=== PATIENT | female | born 1965 | race Caucasian/White ===

== ENCOUNTER → 2016-05-11 | Outpatient (CLI) | payer OTHER ==
--- NOTE | 2016-05-11 12:05 | MA ---
Screening Digital Mammogram With iCAD Analysis Clinical Indications: Routine screening. Technique: Standard cephalocaudal projections are obtained. Digital breast tomosynthesis was performe d in the MLO projection with reconstruction at 1.0 mm slice thickness and composite MLO views reconst ructed. This examination is processed by the iCAD computer aided detection system. Comparison: June 2013, May 2012, May 2011, March 2008, May 2006. Breast density: Type D: Extremely dense. Findings: CAD was reviewed. On the tomosynthesis sequence of the left breast there is a 12 mm rounded opacity in the mid slightly medial left breast. No suspicious microcalcifications are identified. Th e right breast is stable in appearance. Impression: Nodular asymmetry left breast requires further evaluation, BI-RADS 0.. Recommendation: Targeted left breast ultrasound with additional mammographic imaging if indicated at the time of sonographic evaluation. [facility] will send a result letter to the patient. Negative mammography should not preclude additional workup of a clinically suspicious finding. The patient's information is entered into a reminder system with a target due date for her next mammo gram.
== END ==
LOC: FIMAGING 08:52
PROVIDERS: ATTEND Nurse Practitioner Women's Health
DX: Z12.31 Encounter for screening mammogram for malignant neoplasm of breast (principal)
CPT/HCPCS: G0202

== ENCOUNTER → 2016-05-25 | Outpatient (CLI) | payer OTHER | LOC: FIMAGING 09:39 | DX: N60.02 Solitary cyst of left breast (principal) ==

== ENCOUNTER 2016-08-08 07:22 | Day surgery (SDC) | payer OTHER ==
--- NOTE | 2016-07-27 16:14 | GHP ---
[f rep st] PREOP HISTORY AND PHYSICAL DATE OF ADMISSION: 08/08/2016 ADMITTING DIAGNOSES: 1. Left adnexal mass. 2. Dyspareunia. HISTORY OF PRESENT ILLNESS: The patient is a 50-year-old G0, who presents to my office for a surgical consult. The patient presents with complaints of about 6 months' duration of dyspareunia, especially with deep penetration. Patient also has a history of irregular cycles, every 22-50 days. She usually bleeds 2-3 days. They are light, and she has moderate cramps. Does have the Paragard IUD in place. Patient did undergo an ultrasound secondary to irregular cycles, as well as the dyspareunia, and there was noted to be multiple fibroids, at least 3 that were measurable. There is a subserosal fibroid in the right anterior wall, another subserosal fibroid posteriorly, and an intramural fibroid, all measuring between 1 and 3 cm. Endometrial thickness is 0.51 cm. There was noted to be a solid mass in the left adnexa measuring 4 x 3 x 3 cm, with a small fluid component within the mass which demonstrated flow. There was question whether this was a pedunculated fibroid versus a left ovarian mass. There is no free fluid noted. Patient did have a CA-125 drawn which was normal at 7.8, and was told to have repeat followup ultrasound in 4-6 weeks. Patient presented the end of June for a followup ultrasound. Again, the IUD was appropriately placed. Anterior uterus was 6 x 4 x 5 cm with multiple, unchanged fibroids. The left adnexal mass was also unchanged, still measuring 4 x 3 x 4 cm. Left ovary is not visible. The right ovary is normal, and no free fluid. The patient was given options of pursuing an MRI for better evaluation of this possible left ovarian mass, versus surgical consult. Patient does desire surgery for evaluation and possible removal of this mass. The patient denies any urinary or bowel complaints, and has no other complaints at this time. PAST OB HISTORY: Patient is nulliparous. BRONZE CHASER HISTORY: Age of menarche 14. Cycles are every 22-50 days for 2-3 days. Light flow. Moderate cramping. Patient does have a history of abnormal Pap smears. A colposcopy and cryosurgery was done in 1992. Most recent Pap smear in 2017 negative. Patient does have a history of chlamydia, with treatment in , and denies any other exposure to sexually transmitted diseases. PAST MEDICAL HISTORY: Remarkable for depression, anxiety that are well controlled. PAST SURGICAL HISTORY: Cryosurgery in 1992. Eye muscle surgery in 1985. ALLERGIES: Cortisone. FAMILY HISTORY: Mother and maternal grandmother with thyroid disease. Father with a stroke, and paternal grandfather with emphysema. SOCIAL HISTORY: Patient is in a relationship for 8 years now. She works as a content writer. She denies any tobacco use. She does drink 1-2 drinks per week, and admits to marijuana use once every 3 months. PHYSICAL EXAMINATION: VITAL SIGNS: Stable. Patient is afebrile. GENERAL APPEARANCE: Well-nourished, well-developed female. Alert and oriented x3, in no apparent distress. CARDIOVASCULAR: Regular rate and rhythm. LUNGS: Clear to auscultation. ABDOMEN: Soft, nondistended, nontender. Active bowel sounds. PELVIC: Bimanual exam: A normal-sized uterus, nontender, mobile, and normal adnexa without tenderness or masses. LABS: H and H are pending. CA 125 is 7.8 ASSESSMENT: The patient is a 50-year-old, 0, who presents with left adnexal mass unresolved, and dyspareunia for 6 months' duration. PLAN: 1. Surgical options were reviewed with the patient. Will proceed with a diagnostic laparoscopy with possible removal of mass and/or ovary. Discussed limitations, n.p.o. status, preop and postop recovery. 2. Risks, benefits, and alternatives reviewed with the patient including, but not limited to, bleeding, infection, and risk of damage to surrounding organs, including the bowel, bladder, and ureters. Patient does understand all risks at this time, and wants to proceed with surgery. 3. Antibiotics construction project engineer to OR. 4. SCDs for DVT prophylaxis. /[id number]/MODL MTDD
[~2016-08-08 07:22] MED LIST: BUPIVACAINE 0.25% 30 ML SDV ONE; SILVER NITRATE APPLICATOR 1 APPL TP ONE; ceFAZolin 2 GM/DEXTROSE 100 ML IV ONE
[2016-08-08] MEDS ORDERED: LIDOCAINE 1% 2 ML INJ ONE (07:45)
[2016-08-08] MEDS ORDERED: LR 1,000 ML IV ONE (08:00)
[2016-08-08] MEDS ORDERED: LIDOCAINE 1% 5 ML SDV ID PRN (08:00)
[2016-08-08] MEDS ORDERED: METOCLOPRAMIDE 10 MG/2 ML VIAL ONE (08:05)
[2016-08-08] MEDS ORDERED: METOCLOPRAMIDE 10 MG/2 ML VIAL IVP ONE (08:30)
[2016-08-08] MEDS ORDERED: MIDAZOLAM 2 MG/2 ML VIAL ONE (08:32)
[2016-08-08] MEDS ORDERED: LIDOCAINE 2% 100 MG/5 ML SYR ONE (08:39)
[2016-08-08] MEDS ORDERED: KETOROLAC 30 MG/1 ML SDV ONE (08:39)
[2016-08-08] MEDS ORDERED: PROPOFOL/EMULSION 500 MG/50 ML BOTTLE IV ONE ×2 (08:39→09:12)
[2016-08-08] MEDS ORDERED: ROCURONIUM 100 MG/10 ML VIAL ONE (08:39)
--- NOTE | 2016-08-08 15:59 | GOP ---
[f rep st] OPERATIVE REPORT DATE OF OPERATION: 08/08/2016 SURGEON: Jasmin Hampton DO PAPER GRADER: Loreto Fox DO. ANESTHESIA: General endotracheal. PREOPERATIVE DIAGNOSIS: 1. Left adnexal mass. 2. Dyspareunia. POSTOPERATIVE DIAGNOSIS: 1. Left adnexal mass. 2. Dyspareunia. 3. Endometriosis. 4. Right ovarian cyst consistent with endometrioma, and right ovarian mass. PROCEDURE PERFORMED: 1. Diagnostic laparoscopy. 2. Laparoscopic left salpingo-oophorectomy. 3. Fulguration of endometriosis. 4. Drainage of right ovarian cyst, and excision of right ovarian mass. FINDINGS: On bimanual exam, the uterus was enlarged to about 8-10 weeks' size, irregular shape. IUD strings felt. Left adnexal fullness noted. Uterus was enlarged, and sounded to 10 cm with multiple fibroids noted. There was a large left adnexal mass noted; left ovary measured about 4-5 cm. Mass did appear solid. Right ovary was enlarged and had a chocolate-filled cyst about 3x4 cm as well as a solid mass about 2-3 cm. There was noted to be endometrial implants near left uterosacral ligament on the peritoneum. Bilateral fallopian tubes grossly normal appearing. Upper abdomen grossly normal appearing. SPECIMENS: All specimens were sent to pathology. Specimens include left tube and ovary and right ovarian mass. ESTIMATED BLOOD LOSS: 50 cc. INDICATIONS: Patient is a 50-year-old nulliparous who presents with 6 months duration of dyspareunia as well as a left adnexal mass about 5 cm that did not resolve on followup ultrasound. The patient agrees to have surgery done to determine the etiology of mass as well as her pain with intercourse. DESCRIPTION OF PROCEDURE: Patient was taken to the operating room where general anesthesia was obtained without difficulty. The patient was placed in dorsal lithotomy position, prepped and draped in usual sterile manner. Andujar catheter was placed in her bladder. An open-sided speculum was then placed in the vagina. The anterior lip of the cervix grasped with a single-tooth tenaculum. The uterus was then sounded to 10 cm and dilated with Hegar dilators , and the Hulka clamp was then advanced to use as a means to manipulate the uterus. We then turned our attention to the patient's abdomen. Infraumbilical area was injected with 0.25% plain Marcaine. Then, a 5 mm infraumbilical skin incision was made with a knife. The Veress needle was inserted very carefully while tenting the abdominal wall. Aspiration was negative. The abdomen was insufflated with carbon dioxide. Pneumoperitoneum was obtained. After adequate insufflation, the Veress needle was removed. The 5 mm trocar was introduced through the infraumbilical incision through the abdominal cavity directly with the laparoscope. The patient was then placed in Trendelenburg position. There was adequate visualization of the pelvic structures at this time. After injection of more local, another 5 mm skin incision was made in the left lower quadrant and a 10 mm skin incision was made in the right lower quadrant. Atraumatic trocars were placed. Pelvic findings were noted as above. At this time, we turned our attention to the left tube and ovary. The infundibulopelvic ligament was grasped with the LigaSure, cauterized multiple times, and transected. Hemostasis was noted. The left tube and ovary were then placed in the posterior cul-de-sac for later retrieval. We then turned our attention to the endometriosis that was noted near the left uterosacral ligament. Using the LigaSure, this area was cauterized multiple times. Lastly, we turned our attention to the right ovary that had multiple cysts. 1 cyst was drained and it did appear to be a chocolate cyst, an endometrioma. Another cyst was then drained of clear serous fluid. There was a solid-appearing mass about 2 cm that was removed using the LigaSure and sent to pathology. The ovary was oozing and these areas were cauterized using LigaSure, and Stephen was placed for further hemostasis. Hemostasis was finally achieved. Then, using the 10 mm port an EndoCinch bag was placed down through that port, and the left ovary, left tube and right ovarian mass were placed into this EndoCinch bag and then removed. This was difficult secondary to size. The fallopian tube was removed first, then the mass, and the left ovary had to be morcellated into pieces to be removed. Finally, the left ovary was small enough to be removed in the EndoCinch bag. The pelvis was then irrigated with copious amounts of normal saline. All pedicles did appear hemostatic. The laparoscope was then removed. All gas was allowed to escape from the abdomen. The trocar sleeves were then removed as well. The two 5 mm skin incisions were closed with 3-0 Vicryl. The fascia of the 10 mm incision was closed with 0 Vicryl, and the skin was closed with 3-0 Vicryl. Each incision was covered with Steri-Strips and then a Band-Aid. We then turned our attention down below. The Hulka clamp was then removed as well as other instruments. There was noted to be no active bleeding. The patient tolerated the procedure well. No complications. All instrument, sponge, and needle counts were correct x2. The patient was then awakened, taken out of dorsal lithotomy position, and taken to recovery room in stable condition. IV FLUIDS: 1 L of LR. URINE OUTPUT: 50 cc of clear urine at the end of the procedure. /[id number]/MODL MTDD
== END 2016-08-08 12:30 | disposition home or self-care (01) ==
LOC: FSGY 07:22
PROVIDERS: ATTEND Obstetrics & Gynecology
DX: R19.09 Other intra-abdominal and pelvic swelling, mass and lump (principal); N94.10 Unspecified dyspareunia; D25.9 Leiomyoma of uterus, unspecified; N80.9 Endometriosis, unspecified; N83.291 Other ovarian cyst, right side; K21.9 Gastro-esophageal reflux disease without esophagitis
CPT/HCPCS: J0690; J1885; J2001; J2250; J2704; J2765

== ENCOUNTER → 2017-06-07 | Outpatient (CLI) | payer OTHER | LOC: FIMAGING 09:47 | PROVIDERS: ATTEND Nurse Practitioner Women's Health | DX: Z12.31 Encounter for screening mammogram for malignant neoplasm of breast (principal) ==

== ENCOUNTER → 2018-07-11 | Outpatient (CLI) | payer OTHER | LOC: FIMAGING 15:51 | PROVIDERS: ATTEND Nurse Practitioner Women's Health | DX: Z12.31 Encounter for screening mammogram for malignant neoplasm of breast (principal) ==